=== PATIENT | female | born 1960 | race Caucasian/White ===

== ENCOUNTER 2023-06-28 06:39 | Day surgery (SDC) | payer OTHER ==
[~2023-06-28 06:39] MED LIST: Lactated Ringers 1,000 ML IV SCH; Sodium Chloride 0.9% 10 ML Syringe FLUSH PRN
[2023-06-28] MEDS ORDERED: Lidocaine 2% 5 ML SDV IV ONE (06:40)
[2023-06-28] MEDS ORDERED: Propofol 200 MG/20 ML SDV IV ONE (06:40)
[2023-06-28] MEDS ORDERED: Simethicone Drops 40 MG/0.6 ML 30 ML Bottle ONE (07:11)
== END 2023-06-28 08:53 | disposition home or self-care (01) ==
LOC: FB.SDS 06:39
PROVIDERS: ATTEND Surgery
DX: K62.1 Rectal polyp (principal); K57.30 Diverticulosis of large intestine without perforation or abscess without bleeding
CPT/HCPCS: 00811; 88305; A9270-GY; J2704; J7120